=== PATIENT | male | born 1980 | race Caucasian/White ===

== ENCOUNTER → 2019-03-28 | Emergency (ER) | payer OTHER ==
[~2019-03-28] VITALS: Ht 203.2 cm; Wt 181.4 kg
--- OUTSIDE RECORDS SUMMARY | 2019-03-28 04:10 | XMS ---
PreManage Notification: CHERELLE WRIGHT Security Window Clerk Events No recent Security Events currently on file CRITERIA MET - [facility] CARE PROVIDERS There are no care providers on record at this time. Jaya has no Care Guidelines for this patient. Andres VISIT COUNT (12 MO.) 1 [facility] TOTAL 1 NOTE: Visits indicate total known visits. ED/UCC VISIT TRACKING (12 MO.) 03/28/2019 04:09 [facility] [place] TYPE: Emergency COMPLAINT: - COUGH/BLEED/SOB INPATIENT VISIT TRACKING (12 MO.) No inpatient visits to display in this time frame [id number]
== END ==
LOC: ED 04:08
DX: J20.9 Acute bronchitis, unspecified (principal); F17.200 Nicotine dependence, unspecified, uncomplicated; Z86.73 Personal history of transient ischemic attack (TIA), and cerebral infarction without residual deficits; Z88.0 Allergy status to penicillin; Z88.8 Allergy status to other drugs, medicaments and biological substances; Z91.030 Bee allergy status
CPT/HCPCS: 71046; 99283-25

== ENCOUNTER 2019-10-06 17:00 | Emergency (ER) | payer OTHER ==
[~2019-10-06] VITALS: Ht 203.2 cm; Wt 171.5 kg
--- OUTSIDE RECORDS SUMMARY | 2019-10-06 17:04 | XMS ---
PreManage Notification: CLARE WRIGHT Security Gear Hobber Operator Events No recent Security Events currently on file CRITERIA MET - [facility] CARE PROVIDERS ELOISA AMAYA [facility] Current PHONE: Unknown CANDI POON Nurse Practitioner Current PHONE: [phone] Simón Craft Community Health Worker 06/25/2018-Current PHONE: [phone] Jaya has no Care Guidelines for this patient. E.D. VISIT COUNT (12 MO.) [address] [place] [address] 2 [facility]ogue TOTAL 7 NOTE: Visits indicate total known visits. ED/UCC VISIT TRACKING (12 MO.) 10/06/2019 17:01 [facility] [place] TYPE: Emergency COMPLAINT: - BACK PAIN, INJ 03/28/2019 04:09 [facility] [place] TYPE: Emergency COMPLAINT: - COUGH/BLEED/SOB DIAGNOSES: - Personal history of transient ischemic attack (TIA), and cere - Allergy status to penicillin - Allergy status to other drugs, medicaments and biological sub - Nicotine dependence, unspecified, uncomplicated - Acute bronchitis, unspecified - Bee allergy status - Cough 01/17/2019 10:31 [email or web address] [place] TYPE: Emergency DIAGNOSES: - Gastrointestinal hemorrhage, unspecified - BLOOD IN STOOL 01/12/2019 20:15 [email or web address] [place] TYPE: Emergency DIAGNOSES: - DENTAL PAIN - Other specified disorders of teeth and supporting structures 01/01/2019 20:53 [facility] [place] TYPE: Emergency DIAGNOSES: - Noninfective gastroenteritis and colitis, unspecified - Acute upper respiratory infection, unspecified - Vomiting/Fever 11/16/2018 10:58 [facility] [place] TYPE: Emergency DIAGNOSES: - Nausea with vomiting, unspecified - vomiting blood,dizzy - Hematemesis 10/21/2018 01:52 [facility] [place] TYPE: Emergency DIAGNOSES: - Other chest pain - CHEST PAIN - Unspecified convulsions INPATIENT VISIT TRACKING (12 MO.) No inpatient visits to display in this time frame [id number]
[2019-10-06] MEDS ORDERED: PERCOCET 5-3251 EACH PO (23:10)
[2019-10-06] MEDS ORDERED: DICLOFENAC SODI75 MG PO (23:11)
== END 2019-10-06 23:52 | disposition home or self-care (01) ==
LOC: ED 17:00
DX: M54.5 Low back pain (principal); F17.200 Nicotine dependence, unspecified, uncomplicated; Z88.0 Allergy status to penicillin; Z88.8 Allergy status to other drugs, medicaments and biological substances
CPT/HCPCS: 72131; 80053; 85025; 96361; 96374; 96375; 96376; 99284-25; J1170; J1885; J2405; J2930; J7030

== ENCOUNTER 2019-12-20 07:50 | Day surgery (SDC) | payer OTHER ==
[~2019-12-20] VITALS: Ht 203.2 cm; Wt 170.1 kg
[~2019-12-20 07:50] MED LIST: BIOTIN-D1 GM MISC; DICLOFENAC SODI75 MG PO; GABAPENTIN300 MG PO; LISINOPRIL20 MG PO; PANTOPRAZOLE SO40 MG PO; PERCOCET 5-3251 EACH PO
--- NOTE | 2019-12-20 09:44 | NUR ---
12/20/19 0944 Priscila Escamilla 0054-PATIENT ARRIVED TO PACU ON 4L NC AWAKE DROWSY ORIENTED TO PACU. PATIENT REPORTS "MY THROAT IS SCRATCHY" " PATIENT EDUCATED ABOUT THROAT BEING SORE AFTER PROCEDURE. IVF INFUSING. ABDOMEN ROUND. HOB ELEVATED
--- NOTE | 2019-12-20 14:36 | NUR ---
PT ALERT, ORIENTED AND MENTIONED THAT HE HAS HAD SEVERAL EGD'S BEFORE. PT IS PLEASANT, ALL QUESTIONS ASKED WERE ANSWERED. GAVE BLESSING, WILL FOLLOW
--- NOTE | 2019-12-21 13:21 | OR ---
[facility] [address], [place] [address] Signed DATE OF OPERATION: 12/20/2019 SURGEON: Teresa Chandler MD PREOPERATIVE DIAGNOSES: 1. Hiatal hernia. 2. Gastroesophageal reflux disease. 3. Upper GI bleed with Tasha-Lyons tear in 2019. 4. Possible throat cancer, age 15. POSTOPERATIVE DIAGNOSES: 1. Mild to moderate gastroduodenitis. 2. Shallow pyloric bulb/duodenal ulcer. 3. Small to moderate sized hiatal hernia (45-42 cm). PROCEDURE: EGD with CLOtest and biopsies of the proximal area of the 2nd portion of the duodenum, pyloric bulb, antrum and GE junction. ESTIMATED BLOOD LOSS: None. INDICATIONS: Clare is a 39-year-old gentleman at 6 feet 8 inches tall, 400 pounds with a body mass index of 54. He is moved to our area and reestablished with a new primary care provider. He was asked to see me for upper endoscopy. He describes an upper GI bleed associated with a Tasha-Lyons tear in 2019. Apparently, he was initially seen at [facility] with [facility]. He then went to [facility] for the same. He continues to complain of his acid reflux, although better on the Protonix. He is quite convinced at age 14 or 15. He was treated for throat cancer with chemo and radiation down in [place]. He cannot remember what hospital and he told me he was living with his grandmother at that time. In the office, I gave Clare and his a pamphlet on upper endoscopy, we had reviewed that together in detail. He understands the nature of the test along with the risks including, but not limited to gas bloating, crampy abdominal pain, bleeding, perforation requiring surgery, and missed diagnosis. Also because of his size, heavy full face, full macedo, possible previous throat cancer, and so forth we asked that an anesthesia provider help us with increased monitoring sedation with propofol. That proved to be a gaines decision as he needed airway support and suctioning throughout the entire case. He had expressed Electronically Signed By: TERESA CHANDLER MD 12/20/19 1246 Electronically Signed By: TERESA CHANDLER MD 12/21/19 1714 PATIENT NAME: CLARE WRIGHT OPERATIVE REPORT DATE OF : 82 REPORT #: [id number] PHYSICIAN: TERESA CHANDLER MD PCP: BRANDON CHEN MD REPORT IS CONFIDENTIAL AND NOT TO BE RELEASED WITHOUT AUTHORIZATION [facility] [address], [place] [address] Signed understanding and wished to proceed. DESCRIPTION OF PROCEDURE: Clare was taken into our endoscopy suite and placed in the supine semi-recumbent position. He was given monitored anesthesia care with propofol per our nurse gelatin maker utility. A bite block was utilized for the case. The adult gastroscope was introduced and advanced under direct visualization of the camera. He had inflammatory changes in the pyloric bulb and the stomach. He may have a shallow ulcer that is healing in the pyloric bulb itself. We took a biopsy at very beginning of the 2nd portion of the duodenum and the bulb and an additional biopsy of the antrum for CLOtest test as well as pathologic review. Upon retroflexion of scope, he does have a small to moderate sized hiatal hernia. It measured out 45 to 42 cm from the incisors. We saw no evidence of any blood in the stomach and no evidence of a Tasha-Lyons tear associated with his hiatal hernia. He does have minimal disruption to the Z-line. No Frazier's mucosa. We took a biopsy along the edge of the Z-line. The middle and upper esophagus were unremarkable. The posterior oropharynx was unremarkable. After this, the gas was suctioned out and the gastroscope removed. Clare tolerated the procedure quite well. RECOMMENDATIONS: I will see Clare back in my office in 7 to 14 days to review his results. Teresa Chandler MD ALB/MODL /[id number] cc: MD Brandon Parker MD Copies: TERESA CHANDLER MD ~ Electronically Signed By: TERESA CHANDLER MD 12/20/19 1246 Electronically Signed By: TERESA CHANDLER MD 12/21/19 1714 PATIENT NAME: CLARE WRIGHT OPERATIVE REPORT DATE OF : 82 REPORT #: [id number] PHYSICIAN: TERESA CHANDLER MD PCP: BRANDON CHEN MD REPORT IS CONFIDENTIAL AND NOT TO BE RELEASED WITHOUT AUTHORIZATION
--- NOTE | 2019-12-22 16:29 | PATH ---
[facility] [address] [place], [place] [address] Signed SPECIMEN(S): A DUODENUM SPECIMEN(S): B DUODENUM BULB SPECIMEN(S): C ANTRUM/PYLORUS SPECIMEN(S): D GE JUNCTION SPECIMEN SOURCE: A. DUODENUM B. DUODENUM BULB C. ANTRUM/PYLORUS D. GE JUNCTION CLINICAL HISTORY: GERD, possible Tasha Lyons tear. Post op: Gastric duodenitis, small duodenal ulcer, small hiatal hernia. MICROSCOPIC DESCRIPTION: Histologic sections of all submitted blocks are examined by light microscopy. These findings, together with the gross examination, support the pathologic diagnosis. FINAL PATHOLOGIC DIAGNOSIS: A. Duodenum, biopsy: - Duodenal mucosa with no histopathologic abnormality. - Negative for increased intraepithelial lymphocytes. - Negative for dysplasia or malignancy. B. Duodenal bulb, biopsy: - Duodenal mucosa with Kushal's gland hyperplasia. - Negative for Helicobacter organisms on HE stain. - Negative for dysplasia or malignancy. C. Stomach, antrum/pylorus, biopsy: - Antral mucosa with no histopathologic abnormality. - Negative for Helicobacter organisms on HE stain. - Negative for dysplasia or malignancy. D. Gastroesophageal junction, biopsy: - Squamous mucosa with changes consistent with reflux esophagitis. - Negative for intestinal metaplasia, dysplasia, or malignancy. NAL:cml:C2NR GROSS DESCRIPTION: Four specimens are received in four containers, labeled "Clare Wright." A. The specimen, labeled "Clare Wright, #1," and designated on the requisition "duodenum biopsy," is received in formalin and consists of one reddy PATIENT NAME: CLARE WRIGHT PATHOLOGY DATE OF : 82 REPORT #: [id number] PHYSICIAN: STEVEN ARRINGTON PCP: KIERSTEN CHEN MD REPORT IS CONFIDENTIAL AND NOT TO BE RELEASED WITHOUT AUTHORIZATION [facility] [address] [place], [place] [address] Signed soft tissue fragment that measures 0.4 cm in greatest dimension. The specimen is entirely submitted in cassette (A1). B. The specimen, labeled "Clare Wright, #2," and designated on the requisition "duodenum bulb biopsy," is received in formalin and consists of one reddy soft tissue fragment that measures 0.4 cm in greatest dimension. The specimen is entirely submitted in cassette (B1). C. The specimen, labeled "Clare Wright, #3," and designated on the requisition "antrum/pylorus biopsy," is received in formalin and consists of one reddy soft tissue fragment that measures 0.4 cm in greatest dimension. The specimen is entirely submitted in cassette (C1). D. The specimen, labeled "Clare Wright, #4," and designated on the requisition "GE junction biopsy," is received in formalin and consists of one reddy soft tissue fragment that measures 0.4 cm in greatest dimension. The specimen is entirely submitted in cassette (D1). FB (under the direct supervision of a pathologist) The Gross Description was prepared using a voice recognition system. The report was reviewed for accuracy; however, sound-alike word errors, addition and/or deletions may occur. If there is any question about this report, please contact Client Services. PERFORMING LABORATORY: The technical component was performed by [facility], [address] [place] [id number] (Human Services Professional: Carol Lopes MD; CLIA# [id number]). Professional interpretation was performed by [facility], [facility], [address] [address] (CLIA# [id number]). Diagnostician: Julisa Torres MD Pathologist Electronically Signed 12/22/2019 Copies: ~ PATIENT NAME: CLARE WRIGHT PATHOLOGY DATE OF : 82 REPORT #: [id number] PHYSICIAN: STEVEN PATHOLOGY PCP: KIERSTEN CHEN MD REPORT IS CONFIDENTIAL AND NOT TO BE RELEASED WITHOUT AUTHORIZATION
== END 2019-12-20 10:20 | disposition home or self-care (01) ==
LOC: DS 07:50 → OPS 07:50 → DS 08:00 → OPS 08:00
PROVIDERS: ATTEND Colon & Rectal Surgery
PROC: 0DB78ZX Excision of Stomach, Pylorus, Via Natural or Artificial Opening Endoscopic, Diagnostic (ICD-10-PCS; 2019-12-20)
PROC: 0DB48ZX Excision of Esophagogastric Junction, Via Natural or Artificial Opening Endoscopic, Diagnostic (ICD-10-PCS; 2019-12-20)
PROC: 0DB98ZX Excision of Duodenum, Via Natural or Artificial Opening Endoscopic, Diagnostic (ICD-10-PCS; principal; 2019-12-20 08:30)
DX: K31.89 Other diseases of stomach and duodenum (principal); K44.9 Diaphragmatic hernia without obstruction or gangrene; I10 Essential (primary) hypertension; K21.9 Gastro-esophageal reflux disease without esophagitis; F17.210 Nicotine dependence, cigarettes, uncomplicated; Z79.899 Other long term (current) drug therapy
CPT/HCPCS: 86677; J2001; J2704; J3010; J7121

== ENCOUNTER 2020-01-05 07:17 | Day surgery (SDC) | payer OTHER ==
[~2020-01-05] VITALS: Ht 203.2 cm; Wt 170.1 kg
--- NOTE | 2020-01-05 08:39 | NUR ---
01/05/20 0839 Anthony,Marylu 0833 PT ARRIVED TO PACU ON 6L VIA MASK, PT ASLEEP ON LEFT SIDE AND SNORING NOTED. VSS. 0824 PT WAKES AND REPORTS HE NEEDS TO USE THE BATHROOM. O2 MASK REMOVED AND HOB INCREASED.
--- NOTE | 2020-01-08 13:50 | OR ---
[facility] [address] [place], [place] [address] Signed DATE OF OPERATION: 01/05/2020 SURGEON: Teresa Chandler MD PREOPERATIVE DIAGNOSES: 1. Rectal bleeding. 2. Hemorrhoids. 3. Personal history of colonic polyps in 2019. POSTOPERATIVE DIAGNOSES: 1. Multiple 4 mm mid rectal polyps. 2. A 4 mm sessile polyp at 30 cm. 3. A 6 mm sessile polyp at 35 cm. 4. A 4 mm polyp at 25 cm (rectosigmoid junction). 5. Minimal internal hemorrhoids. 6. Moderate external hemorrhoids. PROCEDURE: Colonoscopy with hot biopsy. ESTIMATED BLOOD LOSS: None. INDICATIONS: Clare is a 39-year-old gentleman at 6 feet 8 inches tall, 406 pounds. He has a body mass index of 55. He has had some issues in the last couple of two or three years with a Tasha-Lyons tear, acid reflux, and a GI bleed. He has had upper and lower endoscopies. We just repeated his upper endoscopy number of weeks ago and he does have a moderate-sized hiatal hernia. He came back with concerns about ongoing rectal bleeding, it seems to be bright red. He did have adenomatous polyps removed last year from his colon. He is known to have external hemorrhoids. He also had some hyperplastic polyps. He cannot remember when he was told to follow up. We had reviewed his records together and no recommendation about followup. I had a long discussion with Clare and his significant other. I gave him a pamphlet on colonoscopy, and he understands the nature of the test along with the risks including, but not limited to gas bloating, crampy abdominal pain, bleeding, perforation requiring surgery, and missed diagnosis. We also reviewed polyps and hemorrhoids as well. He decided that he wanted to proceed with a repeat endoscopy. Given his size, very heavy face, thick neck, and very heavy body, we had an anesthesia provider help us for the upper endoscopy. We made those arrangements for the lower endoscopy as well. He had expressed understanding and Electronically Signed By: TERESA CHANDLER MD 01/05/20 1037 Electronically Signed By: TERESA CHANDLER MD 01/09/20 0748 PATIENT NAME: CLARE WRIGHT OPERATIVE REPORT DATE OF : 82 REPORT #: [id number] PHYSICIAN: TERESA CHANDLER MD PCP: KIERSTEN CHEN MD REPORT IS CONFIDENTIAL AND NOT TO BE RELEASED WITHOUT AUTHORIZATION [facility] [address] [place], [place] [address] Signed wished to proceed. PROCEDURE NOTE: Clare was taken into our endoscopy suite and placed in the left lateral decubitus position. He was given IV propofol per our nurse computer security coordinator. A digital rectal exam was performed. He does have moderate circumferential external hemorrhoids, they are little they will bleed once in a while. He had good sphincter tone. No masses. The adult colonoscope was introduced and advanced under direct visualization of camera. Unfortunately, we encountered quite a bit of solid stool as it came up the left colon, transverse colon, and into the right colon. We never quite made our way to the cecum or ileocecal valve. There was just simply too much stool, it was not safe to pass the scope any further. The scope had to be withdrawn. We did find the above mentioned polyps and they were all easily removed with the help of hot biopsy forceps. We did not see any diverticulosis. Thankfully, the rectum was fairly clean. Upon retroflexion of scope, we had a nice view of the area above the anal canal. There was very minimal internal hemorrhoid tissue. After this, the gas was suctioned out, the colonoscope removed. Clare tolerated his procedure quite well. RECOMMENDATIONS: Clare might consider repeat colonoscopy somewhere between three years and maybe less than three years with a double bowel prep. He wants to come the office and review the hemorrhoids more we certainly can do that; however, I think his best bet would be conservative management. Teresa Chandler MD ALB/MODL /[id number] cc: Teresa Chandler MD Copies: TERESA CHANDLER MD ~ Electronically Signed By: TERESA CHANDLER MD 01/05/20 1037 Electronically Signed By: TERESA CHANDLER MD 01/09/20 0748 PATIENT NAME: CLARE WRIGHT OPERATIVE REPORT DATE OF : 82 REPORT #: [id number] PHYSICIAN: TERESA CHANDLER MD PCP: KIERSTEN CHEN MD REPORT IS CONFIDENTIAL AND NOT TO BE RELEASED WITHOUT AUTHORIZATION
--- NOTE | 2020-01-08 14:48 | PATH ---
[facility] [address] [place], [place] [address] Signed SPECIMEN(S): A MID RECTAL POLYP SPECIMEN(S): B COLON POLYP AT 30 CM SPECIMEN(S): C COLON POLYP AT 35 CM SPECIMEN(S): D COLON POLYP AT 25 CM SPECIMEN SOURCE: A. MID RECTAL POLYP B. COLON POLYP AT 30 CM C. COLON POLYP AT 35 CM D. COLON POLYP AT 25 CM CLINICAL HISTORY: Colonoscopy. Rectal bleeding, hemorrhoids, history of polyps. Postop: Colon and rectal polyps, internal/external hemorrhoids. MICROSCOPIC DESCRIPTION: Histologic sections of all submitted blocks are examined by light microscopy. These findings, together with the gross examination, support the pathologic diagnosis. FINAL PATHOLOGIC DIAGNOSIS: A. Mid rectal polyp: - Hyperplastic polyp (multiple fragments). B. Colon polyp at 30 cm: - Hyperplastic polyp (one fragment). C. Colon polyp at 35 cm: - Hyperplastic polyp (two fragments). D. Colon polyp at 25 cm: - Hyperplastic polyp (one fragment). JVR:[facility]:C2NR GROSS DESCRIPTION: Four specimens are received in four containers, labeled "MARTI." A. The specimen, labeled "MARTI, mid rectum polyp," is received in formalin and consists of five reddy soft tissue fragments that measure 0.2 cm in greatest dimension. The specimen is entirely submitted in cassette (A1). B. The specimen, labeled "MARTI, colon polyp at 30 cm," is received in formalin and consists of one reddy soft tissue fragment that measures 0.2 cm in greatest dimension. The specimen is entirely submitted in cassette (B1). C. The specimen, labeled "MARTI, colon polyp at 35 cm," is received in formalin PATIENT NAME: CLARE WRIGHT PATHOLOGY DATE OF : 82 REPORT #: [id number] PHYSICIAN: STEVEN PATHOLOGY PCP: KIERSTEN CHEN MD REPORT IS CONFIDENTIAL AND NOT TO BE RELEASED WITHOUT AUTHORIZATION [facility] [address] [place], [place] [address] Signed and consists of two reddy soft tissue fragments that measure 0.2 cm in greatest dimension. The specimen is entirely submitted in cassette (C1). D. The specimen, labeled "MARTI, colon polyp at 25 cm," is received in formalin and consists of one reddy soft tissue fragment that measures 0.2 cm in greatest dimension. The specimen is entirely submitted in cassette (D1). JS (under the direct supervision of a pathologist) The Gross Description was prepared using a voice recognition system. The report was reviewed for accuracy; however, sound-alike word errors, addition and/or deletions may occur. If there is any question about this report, please contact Client Services. PERFORMING LABORATORY: The technical component was performed by [facility], [address] [place] [id number] (Sorority Supervisor: Carol Lopes MD; CLIA# [id number]). Professional interpretation was performed by [facility] [address] (Sorority Supervisor: Kike Buchanan M.D.). Diagnostician: Kike Buchanan MD Pathologist Electronically Signed 01/08/2020 Copies: ~ PATIENT NAME: CLARE WRIGHT PATHOLOGY DATE OF : [birth year] REPORT #: [id number] PHYSICIAN: STEVEN PATHOLOGY PCP: KIERSTEN CHEN MD REPORT IS CONFIDENTIAL AND NOT TO BE RELEASED WITHOUT AUTHORIZATION
== END 2020-01-05 09:10 | disposition home or self-care (01) ==
LOC: OPS 07:17 → DS 07:17 → OPS 09:10 → DS 10:45 → OPS 12:00 → DS 12:00
PROVIDERS: ATTEND Colon & Rectal Surgery
PROC: 0DBE8ZZ Excision of Large Intestine, Via Natural or Artificial Opening Endoscopic (ICD-10-PCS; 2020-01-05)
PROC: 0DBP8ZZ Excision of Rectum, Via Natural or Artificial Opening Endoscopic (ICD-10-PCS; principal; 2020-01-05 06:45)
DX: K62.1 Rectal polyp (principal); K63.5 Polyp of colon; K64.8 Other hemorrhoids; K64.4 Residual hemorrhoidal skin tags; I10 Essential (primary) hypertension; K21.9 Gastro-esophageal reflux disease without esophagitis; F17.210 Nicotine dependence, cigarettes, uncomplicated; Z86.010 Personal history of colon polyps; Z79.899 Other long term (current) drug therapy
CPT/HCPCS: J2001; J2704; J7121

== ENCOUNTER 2020-05-17 21:25 | Emergency (ER) | payer OTHER ==
[~2020-05-17] VITALS: Ht 203.2 cm; Wt 90.0 kg
== END 2020-05-18 00:22 | disposition home or self-care (01) ==
LOC: ED 21:25
DX: R11.0 Nausea (principal); F17.200 Nicotine dependence, unspecified, uncomplicated; Z88.0 Allergy status to penicillin; Z88.8 Allergy status to other drugs, medicaments and biological substances; Z79.899 Other long term (current) drug therapy
CPT/HCPCS: 80053; 81001; 85025; 96374; 99284-25; J2405; J7030

== ENCOUNTER 2020-06-12 01:46 | Emergency (ER) | payer OTHER ==
[~2020-06-12] VITALS: Ht 203.2 cm; Wt 186.0 kg
--- OUTSIDE RECORDS SUMMARY | 2020-06-12 01:50 | XMS ---
PreManage Notification: CLARE WRIGHT Security Utility Tender Carding Events No recent Security Events currently on file CRITERIA MET - [facility] - 2 Visits in 30 Days CARE PROVIDERS ELOISA AMAYA [facility] Current PHONE: Unknown CANDI POON Nurse Practitioner 12/26/2018-Current PHONE: [phone] YAMINI MEDEIROS Community Health Worker 06/25/2018-Current PHONE: [phone] Jaya has no Care Guidelines for this patient. E.Micheline VISIT COUNT (12 MO.) 1 Phil Lema MonicoKirill 3 [facility] TOTAL 4 NOTE: Visits indicate total known visits. ED/UCC VISIT TRACKING (12 MO.) 06/12/2020 01:46 [facility] [place] TYPE: Emergency COMPLAINT: - DENTAL PAIN 05/17/2020 21:26 [facility] [place] TYPE: Emergency COMPLAINT: - NAUSEA DIAGNOSES: - Allergy status to penicillin - Dizziness and giddiness - Other senior living (current) drug therapy - Vomiting, unspecified - Nicotine dependence, unspecified, uncomplicated - Nausea - Allergy status to other drugs, medicaments and biological substances 10/07/2019 16:25 [facility] Laure [facility] TYPE: Emergency DIAGNOSES: - Essential (primary) hypertension - back injury,loss of bowel - back injury,loss of bowels - Lumbago with sciatica, right side - Body mass index [BMI]40.0-44.9, adult - Back Injury - Morbid (severe) obesity due to excess calories - Gastro-esophageal reflux disease without esophagitis - Numbness - Lumbago with sciatica, left side - Anesthesia of skin - Back Pain 10/06/2019 17:01 [facility] [place] TYPE: Emergency COMPLAINT: - BACK PAIN, INJ DIAGNOSES: - Allergy status to penicillin - Nicotine dependence, unspecified, uncomplicated - Allergy status to other drugs, medicaments and biological substances - Low back pain INPATIENT VISIT TRACKING (12 MO.) No inpatient visits to display in this time frame [email or web address]
[2020-06-12] MEDS ORDERED: CLINDAMYCIN HC300 MG PO (02:44)
[2020-06-12] MEDS ORDERED: LISINOPRIL-HCT1 EAC1 PO (03:40)
[2020-06-12] MEDS ORDERED: METOPROLOL SUCC50 MG PO (03:41)
== END 2020-06-12 03:43 | disposition home or self-care (01) ==
LOC: ED 01:46
DX: T81.41XA Infection following a procedure, superficial incisional surgical site, initial encounter (principal); K04.7 Periapical abscess without sinus; I10 Essential (primary) hypertension; K21.9 Gastro-esophageal reflux disease without esophagitis; F17.200 Nicotine dependence, unspecified, uncomplicated; Z88.0 Allergy status to penicillin; Z88.8 Allergy status to other drugs, medicaments and biological substances; Z79.899 Other long term (current) drug therapy
CPT/HCPCS: 96365; 96375; 99283-25; J1885

== ENCOUNTER 2020-06-23 12:58 | Emergency (ER) | payer OTHER ==
[~2020-06-23] VITALS: Ht 203.2 cm; Wt 197.8 kg
[~2020-06-23 12:58] MED LIST changes: +CLINDAMYCIN HC300 MG PO; +LISINOPRIL-HCT1 EAC1 PO; +METOPROLOL SUCC50 MG PO
--- OUTSIDE RECORDS SUMMARY | 2020-06-23 13:02 | XMS ---
PreManage Notification: CLARE WRIGHT Security Test Engineer Events No recent Security Events currently on file CRITERIA MET - [facility] - 2 Visits in 30 Days CARE PROVIDERS ELOISA AMAYA [facility] Current PHONE: Unknown KIERSTEN CHEN [facility] 06/12/2020-Current PHONE: [phone] CANDI POON Nurse Practitioner 12/26/2018-Current PHONE: [phone] YAMINI MEDEIROS Community Health Worker 06/25/2018-Current PHONE: [phone] Jaya has no Care Guidelines for this patient. Andres VISIT COUNT (12 MO.) 1 Phil Lema [facility] 4 [facility] TOTAL 5 NOTE: Visits indicate total known visits. ED/UCC VISIT TRACKING (12 MO.) 06/23/2020 12:59 [facility] [place] TYPE: Emergency COMPLAINT: - POSSIBLE INTENAL BLEEDING 06/12/2020 01:46 [facility] [place] TYPE: Emergency COMPLAINT: - DENTAL PAIN DIAGNOSES: - Infection following a procedure, superficial incisional surgical site, initial encounter - Essential (primary) hypertension - Allergy status to other drugs, medicaments and biological substances - Gastro-esophageal reflux disease without esophagitis - Nicotine dependence, unspecified, uncomplicated - Periapical abscess without sinus - Allergy status to penicillin - Other dental procedure status - Other terminal press operator (current) drug therapy 05/17/2020 21:26 [facility] TYPE: Emergency COMPLAINT: - NAUSEA DIAGNOSES: - Allergy status to penicillin - Dizziness and giddiness - Other usp (current) drug therapy - Vomiting, unspecified - Nicotine dependence, unspecified, uncomplicated - Nausea - Allergy status to other drugs, medicaments and biological substances 10/07/2019 16:25 [facility] Mary [facility] TYPE: Emergency DIAGNOSES: - Essential (primary) [...] visits to display in this time frame [email or web address]
== END 2020-06-23 15:11 | disposition home or self-care (01) ==
LOC: ED 12:58
DX: K92.2 Gastrointestinal hemorrhage, unspecified (principal); Z86.73 Personal history of transient ischemic attack (TIA), and cerebral infarction without residual deficits; I10 Essential (primary) hypertension; K21.9 Gastro-esophageal reflux disease without esophagitis; F17.200 Nicotine dependence, unspecified, uncomplicated; Z88.0 Allergy status to penicillin; Z88.8 Allergy status to other drugs, medicaments and biological substances; Z79.899 Other long term (current) drug therapy
CPT/HCPCS: 80053; 85025; 85610; 85730; 99284